=== PATIENT | male | born 1950 | race Caucasian/White ===

== ENCOUNTER 2018-05-12 11:51 | Emergency (ER) | payer MEDICARE ==
--- NOTE | 2018-05-12 12:50 | CR ---
Clinical history: 68-year-old male hypertension and memory loss. Interpretation: No acute new cardiopulmonary abnormality identified in the interval since December 31 18 exam. Chronic hypertrophic arthritic changes dorsal spine. Normal cardiac silhouette without cephalization of flow signs of alveolar edema or dependent pleural effusion. No new lung mass, hilar lymphadenopathy or focal lobar pneumonia. AP bony thorax unremarkable. No atelectasis/collapse. No pneumothorax.
--- NOTE | 2018-05-12 12:55 | CT ---
CLINICAL HISTORY: 68-year-old male with hypertension and memory loss issues. No known trauma. SCAN TECHNIQUE: Volume acquisition of data from an emergency unenhanced CT scan of the head and brain obtained while the patient was lying supine on the Siemens multislice scanner [place], [place]. All data archived in the PACS system for storage, reformatting axial/sagit lindsay/coronal planes and study. INTERPRETATION: 1. Uniformly thick bony calvarium without sign of skull fracture, underlying brain contusion or epidu ral/subdural hematoma. 2. Symmetric clear pneumatization of the frontal, ethmoid, left maxillary, sphenoid and mastoid sinus es (dense opacification right maxillary sinus). 3. Age-appropriate cohn-white matter pattern with underlying mirror-image normal ventricles. Dense mi dline pineal calcification. 4. No supratentorial or posterior fossa mass lesion. No hydrocephalus. 5. No focal areas of ischemic infarct or signs of encephalomalacia. 6. No sign of acute intracerebral/intraventricular/subarachnoid bleed. 7. Cerebellum and brainstem unremarkable except for punctate calcifications posterior fossa on the ri ght. CONCLUSION: Negative unenhanced CT scan of the brain. Right maxillary sinusitis.
[2018-05-12 13:09] LABS: CHLORIDE,CL 104 mmol/L (101-111); SODIUM,NA 137 mmol/L (135-145)
[2018-05-12] MEDS ORDERED: Metoprolol Tartrate 25 MG Tab PO ONE (13:13)
--- NOTE | 2018-05-12 14:13 | EDM.PDOC ---
ED HPI GENERAL MEDICAL PROBLEM - General Chief Complaint: Head Injury Stated Complaint: BLOOD PRESSURES 200/138 Time Seen by Provider: 05/12/18 12:20 Source of Information: Reports: Patient, RN, RN Notes Reviewed History Limitations: Reports: No Limitations - History of Present Illness INITIAL COMMENTS - FREE TEXT/NARRATIVE: Patient presented to ER with complaint of high blood pressure and a period of confusion this morning. states the patient was asking where all of their stuff was and stated he didn't recall an upcoming move. He states he does not remember this conversation. Denies numbness or tingling, weakness at this time. Patient states he has been having headaches on and off for the past month. Onset: Today Duration: Constant Severity: Mild Improves with: Reports: None Worsens with: Reports: None Associated Symptoms: Reports: No Other Symptoms Right Head Pain Score (Numeric/FACES): 4 - Related Data Allergies Allergy/AdvReac Type Severity Reaction Status Date / Time No Known Allergies Allergy Verified 05/12/18 12:53 Home Meds: Home Meds . [No Known Home Meds] 05/12/18 [History] Past Medical History - Past Health History Medical/Surgical History: Denies Medical/Surgical History Social & Family History - Family History Family Medical History: Unobtainable - Tobacco Use Smoking Status *Q: Never Smoker - Caffeine Use Caffeine Use: Reports: None - Recreational Drug Use Recreational Drug Use: No ED ROS GENERAL - Review of Systems Review Of Systems: ROS reveals no pertinent complaints other than HPI. ED EXAM, HEAD INJURY - Physical Exam Exam: See Below Exam Limited By: No Limitations General Appearance: Alert, WD/WN, No Apparent Distress Head: Atraumatic, Normocephalic Eyes: Bilateral Eye: EOMI, Normal Inspection, PERRL Ears: Normal External Exam, Normal Canal, Hearing Grossly Normal, Normal TMs Nose: Normal Inspection, Normal Mucousa, No Blood Throat/Mouth: Normal Inspection, Normal Lips, Normal Teeth, Normal Gums, Normal Oropharynx, Normal Voice, No Airway Compromise Respiratory: No Respiratory Distress, Lungs Clear, Normal Breath Sounds, No Accessory Muscle Use, Chest Non-Tender Cardiovascular: Normal Peripheral Pulses, Regular Rate, Rhythm, No Edema, No Gallop, No JVD, No Murmur, No Rub GI/Abdominal Exam: Normal Bowel Sounds, Soft, Non-Tender, No Organomegaly, No Distention, No Abnormal Bruit, No Mass (Male) Exam: Deferred Rectal (Males) Exam: Deferred Back Exam: Full Range of Motion, Normal Inspection, NT Extremities: Normal Inspection, Normal Range of Motion, Non-Tender, No Pedal Edema, Normal Capillary Refill Neurologic: oracle analyst II-XII nml As Tested, No Motor/Sensory Deficits, Alert, Normal Mood/Affect, Oriented x 3 Skin: Normal Color, Warm/Dry EKG INTERPRETATION EKG Date: 05/12/18 Time: 12:17 Rhythm: Other (sinus or ectopic atrial rhythm) EKG Interpretation Comments: EKG shows probable left atrial abnormality and lateral infarct, age indeterminate. Course - Vital Signs Last Recorded V/S: Last Vital Signs Temp 98 F 05/12/18 12:10 Pulse 66 05/12/18 13:21 Resp 12 05/12/18 12:10 BP 162/98 H 05/12/18 13:36 Pulse Ox 100 05/12/18 12:10 - Orders/Labs/Meds Orders: Active Orders 24 hr Category Date Time Status EKG 12 Lead [EKG Documentation Completion] [RC] STAT Care 05/12/18 12:24 Active Labs: Laboratory Tests 05/12/18 05/12/18 Range/Units 12:40 12:40 WBC 7.9 (5.0-10.0) 10^3/uL RBC 5.02 (4.6-6.2) 10^6/uL Hgb 15.0 (14.0-18.0) g/dL Hct 44.0 (40.0-54.0) % MCV 87.6 (80-100) fL MCH 29.9 (27.0-34.0) pg MCHC 34.1 (33.0-35.0) g/dL Plt Count 187 (150-450) 10^3/uL Neut % (Auto) 72.2 (42.2-75.2) % Lymph % (Auto) 19.8 L (20.5-50.1) % Leon % (Auto) 6.9 (2-8) % Eos % (Auto) 0.5 L (1.0-3.0) % Baso % (Auto) 0.6 (0.0-1.0) % Sodium 137 (135-145) mmol/L Potassium 4.0 (3.6-5.0) mmol/L Chloride 104 (101-111) mmol/L Carbon Dioxide 25.0 (21.0-31.0) mmol/L Anion Gap 12.0 BUN 19 H (7-18) mg/dL Creatinine 1.0 (0.6-1.3) mg/dL Est Cr Clr Drug Dosing 66.20 mL/min Estimated GFR (MDRD) > 60 BUN/Creatinine Ratio 19.00 Glucose 92 (74-105) mg/dL Calcium 8.4 (8.4-10.2) mg/dl Total Bilirubin 1.1 H (0.2-1.0) mg/dL AST 18 (10-42) IU/L ALT 19 (10-60) IU/L Alkaline Phosphatase 85 (42-121) IU/L Troponin I < 0.02 (0.00-0.02) ng/ml Total Protein 7.0 (6.7-8.2) g/dl Albumin 4.1 (3.2-5.5) g/dl Globulin 2.9 Albumin/Globulin Ratio 1.41 Meds: Medications Discontinued Medications Generic Name Dose Route Start Last Admin Trade Name Freq PRN Reason Stop Dose Admin Metoprolol Tartrate 25 mg 05/12/18 13:13 05/12/18 13:21 Lopressor PO 05/12/18 13:14 25 mg ONETIME ONE Administration - Radiology Interpretation Free Text/Narrative:: Chest x-ray: No acute new cardiopulmonary abnormality identified in the interval since January 06, 2018. Chronic hypertrophic arthritic changes dorsal spine. See rad report. CT head: Negative unenhanced CT scan of the brain. Right maxillary sinusitis. See rad report. - Re-Assessments/Exams Free Text/Narrative Re-Assessment/Exam: 05/12/18 14:09 Patient was informed of his labs, test results. He is highly encouraged to be transferred via ambulance to [facility] in [place]. He refuses to go by ambulance. He states he will go to the hospital in [place] but that his family will take him. Patient, , and daughter were told that [facility] and staff, as well as [facility] and staff will not be liable for any occurrences that should arise while be transported to [facility] via private vehicle. All state understanding. 05/12/18 18:52 Discussed patient case with Dr. Ryder who agreed to accept the patient for admission/transfer. Departure - Departure Time of Disposition: 14:12 Disposition: DC/Tfer to Acute Hospital 02 Condition: Fair Clinical Impression: Confusion Hypertension Qualifiers: Hypertension type: unspecified Qualified Code(s): I10 - Essential (primary) hypertension Headache Qualifiers: Headache type: unspecified Headache chronicity pattern: unspecified pattern Intractability: not intractable Qualified Code(s): R51 - Headache - Discharge Information *PRESCRIPTION DRUG MONITORING PROGRAM REVIEWED*: No *COPY OF PRESCRIPTION DRUG MONITORING REPORT IN PATIENT MICHAEL: No Referrals: PCP,None [Primary Care Provider] - Forms: ED Department Discharge, Interfacility Transfer EMTALA - My Orders Last 24 Hours: My Active Orders 05/12/18 12:24 EKG 12 Lead [EKG Documentation Completion] [RC] STAT - Assessment/Plan Last 24 Hours: My Active Orders 05/12/18 12:24 EKG 12 Lead [EKG Documentation Completion] [RC] STAT
== END 2018-05-12 14:18 ==
LOC: DL.ED 11:51
DX: I10 Essential (primary) hypertension (principal); R41.0 Disorientation, unspecified
CPT/HCPCS: 36415; 70450; 71045; 80053; 84484; 85025; 93005; 93010; 99284; A9270